=== PATIENT | male | born 1990 | race Caucasian/White ===

== ENCOUNTER 2017-01-06 15:51 | Emergency (ER) | payer BC, OTHER ==
[~2017-01-06] VITALS: Ht 180.3 cm; Wt 82.0 kg
[~2017-01-06 15:51] MED LIST: LRT5 PO; MOUTH RINSE
[2017-01-06 15:55] VITALS: TEMP 36.7; Ht 180.3 cm; Wt 82.0 kg
[2017-01-06] MEDS ORDERED: IBUP-1050 PO (16:23)
[2017-01-06] MEDS ORDERED: PENI250T3 PO (16:23)
[2017-01-06] MEDS ORDERED: CLC/300 PO (16:34)
--- NOTE | 2017-01-06 16:36 | EMERGENCY ROOM VISIT NOTE ---
ED Visit Note First contact with patient: 16:16 CHIEF COMPLAINT: Toothache HISTORY OF PRESENT ILLNESS: This 26-year-old male patient presented to the emergency department accompanied by 3 family members, with a progressive toothache for past 8 months. The patient believes it is coming from his right front tooth, which has been infected for approximately 8 months. The patient states he broke his tooth 2 years ago. He has previously consulted with [place] regarding the tooth, and "nothing was done at that time". The patient does not have a local dentist. The patient states he has been seen several times at the [place] the ER, and has been on Augmentin twice and penicillin once. The patient did not complete his last course of penicillin, which was prescribed to him approximately 6 weeks ago, because he states he had an appointment scheduled for January 17 with a surgeon in [place]. The patient states he was saving the antibiotic in case he needed it. The pain is now steady and severe and radiates to the face. The patient does report pus draining from the upper gum just above the tooth. The patient does have a dentist appointment set up on January 17. They rate their pain a 7/10 and the ibuprofen and Tylenol they have been taking has not relieved the pain. The patient did start taking his penicillin 2 days ago, and has taken 5 doses since then. He does report some improvement in his pain with the antibiotic. The patient states he does not have enough of the antibiotic to last more than one more day. Denies facial swelling or fever. The patient does admit to chills and increased fatigue and lethargy over the past 3 days. REVIEW OF SYSTEMS: A 6 system review of systems was completed with positives and pertinent negatives listed in the HPI. ALLERGIES: None MEDICATIONS: Pen-Vee K PMH: Dental abscess SOCIAL HISTORY: The patient lives locally with family. He denies drug, alcohol , tobacco use. PHYSICAL EXAM: Vitals are noted on the nurse's note and reviewed by myself. Vital signs stable. Temperature 36.7C orally. GENERAL: This is a 26-year-old male, in no acute distress, nondiaphoretic, well-developed well-nourished. Mouth: The #8 tooth is broken in half horizontally, and the gum is swollen and tender around it, with mild discharge, but no obvious induration.. The remainder of the pharynx and tonsils are without erythema, edema, or exudate. The airway is patent. There is no facial swelling, cervical or submandibular lymphadenopathy. The patient appears uncomfortable and in pain. The patient has overall poor dental hygiene. EARS: External auditory canals clear, tympanic membranes pearly orellana without erythema or effusion bilaterally. ED COURSE: The patient was seen and evaluated as above. I discussed with him treatment with antibiotics. The patient and his family members all asked several questions regarding the infection and treatment, and I did answer questions to their satisfaction. The patient was discharged home in good condition. DIFFERENTIAL DIAGNOSIS: Dental caries, dental abscess, odontalgia, tooth fracture, acute sinusitis, acute pharyngitis, and others. DIAGNOSIS: Dental abscess DISCHARGE INSTRUCTIONS & TREATMENT: You have been treated in the Emergency Department for Dental Pain. You were prescribed clindamycin to be taken twice daily. This is an antibiotic. All antibiotics have the potential to cause diarrhea. Stop this medication and contact a medical provider if you were to develop any significant adverse side effects including: wheezing, shortness of breath, passing out, vomiting, or a diffuse rash. Always take antibiotics as directed and COMPLETE the ENTIRE course regardless of the improvement of your symptoms. For pain control, you can use the following [id number] medicines (if >12 yo): Ibuprofen(Motrin, Advil) may be used for fever or pain. Use 600mg every six hours as needed. Take with food. Avoid using more than 2400mg in a 24 hour period. Do not use 2400mg per day for more than three consecutive days without physician direction. Prolonged inappropriate use can lead to stomach upset or ulcers. (AND/OR) Acetaminophen(Tylenol) may be used for fever or pain. Use 1000mg every six hours as needed. Avoid using more than 3000mg in a 24 hour period. You may alternate these medications every 3-4 hours, being sure not to exceed the recommended daily dosages of either. Refrain from smoking cigarettes or using chewing tobacco until you have been evaluated by your dentist. Keeping beverages lukewarm and consuming soft foods can decrease your pain. Warm compresses over the affected area may offer some relief. You MUST seek evaluation of your dental pain by a dentist following your visit to the Emergency Department. The Emergency Department is not capable of treating dental issues long-term. You should call your dentist as soon as possible to make an appointment for evaluation of your dental pain. Return to the emergency department if you develop the following symptoms despite treatment course outlined above: fever, intractable pain, increased redness, swelling, or purulent discharge. Current/Historical Medications Scheduled Clindamycin HCl (Clindamycin HCl), 1 CAP PO BID Penicillin V Potassium (Veetids), 1 TAB PO QID Scheduled PRN Ibuprofen (Advil), 400 MG PO Q6H PRN for Pain Allergies Coded Allergies: No Known Allergies (Verified Allergy, Mild, NONE, 01/10/09) Vital Signs Date Time Temp Pulse Resp B/P (MAP) Pulse Ox O2 Delivery O2 Flow Rate FiO2 01/06/17 16:56 88 18 132/80 97 01/06/17 15:55 36.7 105 16 137/81 99 Room Air Departure Information Impression Primary Impression: Dental abscess Dispostion Home / Self-Care Condition GOOD Prescriptions Clindamycin HCl (Clindamycin HCl) 300 Mg Cap 1 CAP PO BID for 10 Days, #20 CAP Prov: Precious Mcginnis PA-C 01/06/17 Referrals No Doctor, Assigned (PCP) Patient Instructions ED Abscess Dental, [facility] Additional Instructions You have been treated in the Emergency Department for Dental Pain. You were prescribed clindamycin to be taken twice daily. This is an antibiotic. All antibiotics have the potential to cause diarrhea. Stop this medication and contact a medical provider if you were to develop any significant adverse side effects including: wheezing, shortness of breath, passing out, vomiting, or a diffuse rash. Always take antibiotics as directed and COMPLETE the ENTIRE course regardless of the improvement of your symptoms. For pain control, you can use the following [id number] medicines (if >12 yo): Ibuprofen(Motrin, Advil) may be used for fever or pain. Use 600mg every six hours as needed. Take with food. Avoid using more than 2400mg in a 24 hour period. Do not use 2400mg per day for more than three consecutive days without physician direction. Prolonged inappropriate use can lead to stomach upset or ulcers. (AND/OR) Acetaminophen(Tylenol) may be used for fever or pain. Use 1000mg every six hours as needed. Avoid using more than 3000mg in a 24 hour period. You may alternate these medications every 3-4 hours, being sure not to exceed the recommended daily dosages of either. Refrain from smoking cigarettes or using chewing tobacco until you have been evaluated by your dentist. Keeping beverages lukewarm and consuming soft foods can decrease your pain. Warm compresses over the affected area may offer some relief. You MUST seek evaluation of your dental pain by a dentist following your visit to the Emergency Department. The Emergency Department is not capable of treating dental issues long-term. You should call your dentist as soon as possible to make an appointment for evaluation of your dental pain. Return to the emergency department if you develop the following symptoms despite treatment course outlined above: fever, intractable pain, increased redness, swelling, or purulent discharge.
[2017-01-06 16:56] VITALS: BP 132/80; PULSE 88; O2SAT 97
== END 2017-01-06 16:57 | disposition home or self-care (01) ==
LOC: C.EDB 15:53 → C.EDD 16:57
DX: K04.7 Periapical abscess without sinus (principal)